=== PATIENT | female | born 1995 | race Caucasian/White ===

== ENCOUNTER 2018-01-30 09:12 | Emergency (ER) | payer SELFPAY ==
--- NOTE | 2018-01-30 09:21 | ED PDOC ---
Arrival/HPI - General Time Seen by Provider: 01/30/18 09:21 Historian: Patient - History of Present Illness Narrative History of Present Illness (Text): 01/30/18 09:21 22 y/o female, no significant pmh, nkda, LMP 11/30/2017, , c/o nausea/ vomiting and abdominal pain x 3 days. Pt. stated that she has upper abdominal pain on and off x 3 days, multiple episodes of nausea and vomiting, no diarrhea , last bowel movement was this morning, no lower abdominal pain, no vaginal bleeding or discharge, no headache or night sweat, no rash, no numbness or tingling, no other medical or psychological complaints. Past Medical History - Provider Review Nursing Documentation Reviewed: Yes Family/Social History - Physician Review Nursing Documentation Reviewed: Yes Family/Social History: Unknown Family HX Allergies/Home Meds Allergies/Adverse Reactions: Allergies No Known Allergies Allergy (Verified 01/30/18 09:18) Review of Systems - Review of Systems Constitutional: absent: Fatigue, Fevers Eyes: absent: Vision Changes ENT: absent: Hearing Changes Respiratory: absent: SOB, Cough Cardiovascular: absent: Chest Pain Gastrointestinal: Abdominal Pain, Diarrhea, Nausea, Vomiting Skin: absent: Rash, Pruritis Neurological: absent: Headache, Dizziness Psychiatric: absent: Anxiety, Depression Physical Exam Vital Signs Reviewed: Yes Vital Signs Temp Pulse Resp BP Pulse Ox 01/30/18 09:19 98.2 F 80 16 100/63 100 Temperature: Afebrile Blood Pressure: Normal Pulse: Regular Respiratory Rate: Normal Appearance: Positive for: Well-Appearing, Non-Toxic, Comfortable Pain Distress: Mild Mental Status: Positive for: Alert and Oriented X 3 - Systems Exam Head: Present: Atraumatic, Normocephalic Pupils: Present: PERRL Extroacular Muscles: Present: EOMI Conjunctiva: Present: Normal Mouth: Present: Moist Mucous Membranes Neck: Present: Normal Range of Motion Respiratory/Chest: Present: Clear to Auscultation, Good Air Exchange. No: Respiratory Distress, Accessory Muscle Use Cardiovascular: Present: Regular Rate and Rhythm, Normal S1, S2. No: Murmurs Abdomen: Present: Tenderness (+epigastric tenderness). No: Distention, Peritoneal Signs, Rebound, Guarding Back: Present: Normal Inspection. No: CVA Tenderness, Midline Tenderness, Paraspinal Tenderness Upper Extremity: Present: Normal Inspection. No: Cyanosis, Edema Lower Extremity: Present: Normal Inspection. No: Edema Neurological: Present: GCS=15, CN II-XII Intact, Speech Normal, Motor Func Grossly Intact, Gait Normal, Memory Normal Skin: Present: Warm, Dry, Normal Color. No: Rashes Psychiatric: Present: Alert, Oriented x 3, Normal Insight, Normal Concentration Medical Decision Making ED Course and Treatment: 01/30/18 10:05 -labs/ua/lipase/beta hcg -Gallbladder sonogram -Transvaginal sonogram -IVF/pepcid/reglan -Observe and reassess 01/30/18 11:05 -Pt. refused transvaginal or pelvic sonogram as she has no pelvic or lower abdominal pain. -Pt. refused the pelvic examination as well. 01/30/18 12:26 -Labs are non-significant -UA show +UTI, IV rocephine ordered -Beta hcg [id number] -Type and screen is AB positive. -Pt. has no symptoms or pain now, all symptoms resolved. -Discharge home with macrobid, pepcid, diclegis, bed rest, follow up with your ow pmd and obgyn/GI within 2 days, return to the ER for any new or worsening signs or symptoms. - Lab Interpretations Lab Results: 01/30/18 11:03 01/30/18 11:03 Lab Results 01/30/18 11:03: Blood Type AB POSITIVE, Antibody Screen Negative, BBK History Checked No verified bt 01/30/18 11:03: WBC 4.6, RBC 4.46, Hgb 12.6, Hct 36.9, MCV 82.7, MCH 28.3, MCHC 34.1, RDW 13.4, Plt Count 279, MPV 10.0, Gran % 56.8, Lymph % (Auto) 35.6 H, Webb % (Auto) 7.0 H, Eos % (Auto) 0.4 L, Baso % (Auto) 0.2, Gran # 2.60, Lymph # (Auto) 1.6, Webb # (Auto) 0.3, Eos # (Auto) 0.0, Baso # (Auto) 0.01 01/30/18 11:03: Beta HCG, Quant 46471.00 H 01/30/18 11:03: Sodium 140, Potassium 4.2, Chloride 104, Carbon Dioxide 24, Anion Gap 16, BUN 11, Creatinine 0.5 L, Est GFR ( Amer) > 60, Est GFR ( Non-Af Amer) > 60, Random Glucose 84, Calcium 9.2, Total Bilirubin 0.5, AST 19, ALT 23, Alkaline Phosphatase 66, Total Protein 8.0, Albumin 4.7, Globulin 3.3, Albumin/Globulin Ratio 1.4, Lipase 57 01/30/18 11:03: Urine Color Yellow, Urine Appearance Clear, Urine pH 6.0, Ur Specific [place] 1.025, Urine Protein 30 H, Urine Glucose (UA) Negative, Urine Ketones Trace H, Urine Blood Small H, Urine Nitrate Negative, Urine Bilirubin Small H, Urine Urobilinogen 1.0 H, Ur Leukocyte Esterase Small H, Urine RBC 2 - 5, Urine WBC 5 - 10, Ur Epithelial Cells 6 - 8, Urine Bacteria Many I have reviewed the lab results: Yes - RAD Interpretation Radiology Orders: 01/30/18 10:03 GALL BLADDER [US] Stat HISTORY: upper abdominal pain, r/o cholecystitis COMPARISON: None. TECHNIQUE: Sonographic evaluation of the right upper quadrant of the abdomen. FINDINGS: LIVER: Measures 17.0 cm in length. Patent portal vein. Portal venous flow: Hepatopetal. Unremarkable echogenicity of the liver parenchyma. No mass. No intrahepatic bile duct dilatation. GALLBLADDER: Unremarkable. No gallstones. COMMON BILE DUCT: Measures 5.5 mm. No stones. No dilatation. PANCREAS: Unremarkable as visualized. No mass. No ductal dilatation. RIGHT KIDNEY: Measures 4.1 x 12 cm in length. Normal echogenicity. No calculus, mass, or hydronephrosis. AORTA: No aneurysmal dilatation. IVC: Unremarkable. OTHER FINDINGS: None . IMPRESSION: No significant or acute findings to account for/ related to the clinical presentation. [facility] Ambulatory Specialists: Radiologist - Medication Orders Current Medication Orders: Discontinued Medications Famotidine (Pepcid) 20 mg IVP STAT STA Stop: 01/30/18 10:01 Sodium Chloride (Sodium Chloride 0.9%) 1,000 mls @ 999 mls/hr IV .Q1H1M STA Stop: 01/30/18 11:02 Metoclopramide HCl (Reglan) 10 mg IVP STAT STA Stop: 06/01/18 10:01 - PA / SAFETY SPEC / Resident Statement MD/DO has reviewed & agrees with the documentation as recorded. Disposition/Present on Arrival - Present on Arrival Any Indicators Present on Arrival: No History of DVT/PE: No History of Uncontrolled Diabetes: No Urinary Catheter: No History of Decub. Ulcer: No - Disposition Have Diagnosis and Disposition been Completed?: Yes Diagnosis: UTI (urinary tract infection), Gastritis, Nausea and vomiting, Disposition: HOME/ ROUTINE Disposition Time: 10:05 Patient Plan: Discharge Patient Problems: Current Active Problems Problem Status Onset Gastritis Acute Nausea and vomiting Acute Acute UTI (urinary tract infection) Acute Condition: IMPROVED Additional Instructions: -Discharge home with macrobid, pepcid, diclegis, bed rest, follow up with your ow pmd and obgyn/GI within 2 days, return to the ER for any new or worsening signs or symptoms. Prescriptions: Doxylamine/Pyridoxine HCl (B6) [Diclegis Dr 10-10 mg Tablet] 1 each PO BID PRN # 20 tablet. PRN Reason: Other Famotidine [Pepcid] 20 mg PO BID #20 tab Nitrofurantoin Macrocrystals [Macrobid] 100 mg PO BID #14 cap Referrals: Sadaf Infante MD [Staff Provider] - Follow up with primary Berny Koch MD [Staff Provider] - Follow up with primary Forms: WORK NOTE
[2018-01-30 09:24] VITALS: BP 100/63
[2018-01-30] MEDS ORDERED: Sodium Chloride 0.9% 1,000 ML IV STA (10:02)
[2018-01-30 11:34] LABS: BASO # 0.01 K/mm3 (0.0-2.0); BASO % 0.2 % (0.0-3.0); EOS % 0.4 % (1.5-5.0); GRAN # 2.6 (1.4-6.5); GRAN % 56.8 % (50.0-68.0); HEMOGLOBIN 12.6 g/dL (12.0-16.0); LYMPH # 1.6 (1.2-3.4); LYMPH % 35.6 % (22.0-35.0); MEAN CELL VOLUME 82.7 fl (80.0-105.0); MEAN CORPUSCULAR HEMOGLOBIN 28.3 pg (25.0-35.0); MEAN CORPUSCULAR HGB CONC 34.1 g/dl (31.0-37.0); MONO # 0.3 (0.1-0.6); RBC 4.46 10^6/uL (3.5-6.1); RED CELL DISTRIBUTION WIDTH 13.4 % (11.5-14.5); WHITE BLOOD COUNT 4.6 10^3/ul (4.5-11.0)
[2018-01-30 11:35] LABS: ALB/GLOB RATIO 1.4 (1.1-1.8); ALBUMIN 4.7 g/dL (3.0-4.8); ALT/SGPT 23 U/L (7-56); AST/SGOT 19 U/L (14-36); BLOOD UREA NITROGEN 11 mg/dL (7-21); CALCIUM 9.2 mg/dL (8.4-10.5); GFR AFRICAN-AMERICAN > 60; GFR NON-AFRICAN AMERICAN > 60; LIPASE 57 U/L (23-300)
[2018-01-30 11:37] LABS: URINE BILIRUBIN SMALL (NEGATIVE); URINE BLOOD SMALL (NEGATIVE); URINE GLUCOSE (UA) NEGATIVE (NEGATIVE); URINE LEUKOCYTE ESTERASE SMALL Leu/uL (NEGATIVE); URINE PROTEIN 30 mg/dL (<30 mg/dL)
--- NOTE | 2018-01-30 11:37 | US ---
HISTORY: upper abdominal pain, r/o cholecystitis COMPARISON: None. TECHNIQUE: Sonographic evaluation of the right upper quadrant of the abdomen. FINDINGS: LIVER: Measures 17.0 cm in length. Patent portal vein. Portal venous flow: Hepatopetal. Unremarkable echogenicity of the liver parenchyma. No mass. No intrahepatic bile duct dilatation. GALLBLADDER: Unremarkable. No gallstones. COMMON BILE DUCT: Measures 5.5 mm. No stones. No dilatation. PANCREAS: Unremarkable as visualized. No mass. No ductal dilatation. RIGHT KIDNEY: Measures 4.1 x 12 cm in length. Normal echogenicity. No calculus, mass, or hydronephrosis. AORTA: No aneurysmal dilatation. IVC: Unremarkable. OTHER FINDINGS: None . IMPRESSION: No significant or acute findings to account for/ related to the clinical presentation. All
[2018-01-30 11:38] LABS: URINE APPEARANCE CLEAR (CLEAR); URINE COLOR YELLOW (YELLOW)
[2018-01-30 11:47] LABS: URINE BACTERIA MANY (NEG)
[2018-01-30] MEDS ORDERED: cefTRIAXone 1 gm 1 GM/100 ML BAG IVPB STA (12:26)
[2018-01-30 13:50] VITALS: RESP 18; TEMP 98; O2SAT 99
[2018-01-30 13:51] VITALS: PULSE 81
== END 2018-01-30 13:51 | disposition home or self-care (01) ==
LOC: ED 09:12
DX: O23.40 Unspecified infection of urinary tract in pregnancy, unspecified trimester (principal); K29.70 Gastritis, unspecified, without bleeding; O21.9 Vomiting of pregnancy, unspecified; Z3A.00 Weeks of gestation of pregnancy not specified
CPT/HCPCS: 76705; 80053; 81001; 83690; 84702; 85025; 86850; 86900; 87086; 96374; 96375; 99283; J0696; J2765; J7030